=== PATIENT | female | born 1990 | race Caucasian/White ===

== ENCOUNTER → 2024-05-11 09:39 | Outpatient (REF) | payer BC, SELFPAY | LOC: WDC 09:39 | PROVIDERS: ATTENDING PHYSICIAN Advanced Practice Midwife; FAMILY PHYSICIAN Student in an Organized Health Care Education/Training Program | DX: N63.20 Unspecified lump in the left breast, unspecified quadrant (principal); N63.22 Unspecified lump in the left breast, upper inner quadrant | CPT/HCPCS: 76642; 77062; 77066 ==

== ENCOUNTER → 2025-03-26 11:24 | Outpatient (REF) | payer BC, SELFPAY | LOC: PNTC 11:24 | PROVIDERS: ATTENDING PHYSICIAN Obstetrics & Gynecology | DX: Z36.0 Encounter for antenatal screening for chromosomal anomalies (principal); Z36.82 Encounter for antenatal screening for nuchal translucency | CPT/HCPCS: 76801; 76813 ==

== ENCOUNTER → 2025-04-18 11:35 | Outpatient (REF) | payer BC, SELFPAY | LOC: PNTC 11:35 | PROVIDERS: ATTENDING PHYSICIAN Obstetrics & Gynecology | DX: O99.210 Obesity complicating pregnancy, unspecified trimester (principal) | CPT/HCPCS: 76805 ==

== ENCOUNTER → 2025-05-16 09:42 | Outpatient (REF) | payer BC, SELFPAY | LOC: PNTC 09:42 | PROVIDERS: ATTENDING PHYSICIAN Obstetrics & Gynecology | DX: O99.210 Obesity complicating pregnancy, unspecified trimester (principal) | CPT/HCPCS: 76811; 76817 ==

== ENCOUNTER → 2025-07-02 10:08 | Outpatient (REF) | payer BC, SELFPAY | LOC: PNTC 10:08 | PROVIDERS: ATTENDING PHYSICIAN Student in an Organized Health Care Education/Training Program | DX: O99.210 Obesity complicating pregnancy, unspecified trimester (principal) | CPT/HCPCS: 76816 ==

== ENCOUNTER → 2025-08-02 11:55 | Outpatient (REF) | payer BC, SELFPAY ==
--- NOTE | 2025-08-02 10:02 | PN.DIAED06 ---
Meal Plan - Gestational
- Breakfast
Gestational Diabetes Meal Plan Name: 1800 calories
Breakfast - Total Carbohydrate (grams): 30 (1 carb choice = 15 g)
Breakfast - Starch Carbohydrate: 1 (carbs = starch, fruit, juice, milk)
Breakfast - Fruit Carbohydrate: 0 (no fruit or juice before noon)
Breakfast - Milk Carbohydrate: 1
Breakfast - Nonstarchy Vegetables: Yes
Breakfast - Meat/Protein: 1 (1 serving protein = 1 oz/7g)
Breakfast - Fat: 2 (1 fat serving = 5g)
- Morning Snack
Morning Snack - Total Carbohydrate (grams): 30
Morning Snack - Starch Carbohydrate: 1
Morning Snack - Fruit Carbohydrate: 0 (no fruit or juice before noon)
Morning Snack - Milk Carbohydrate: 1
Morning Snack - Nonstarchy Vegetables: Yes
Morning Snack - Meat/Protein: 0.5
Morning Snack - Fat: 0
- Lunch
Lunch - Total Carbohydrate (grams): 45
Lunch - Starch Carbohydrate: 2
Lunch - Fruit Carbohydrate: 1
Lunch - Milk Carbohydrate: 0
Lunch - Nonstarchy Vegetables: Yes
Lunch - Meat/Protein: 2
Lunch - Fat: 1
- Afternoon Snack
Afternoon Snack - Total Carbohydrate (grams): 30
Afternoon Snack - Starch Carbohydrate: 1
Afternoon Snack - Fruit Carbohydrate: 1
Afternoon Snack - Milk Carbohydrate: 0
Afternoon Snack - Nonstarchy Vegetables: Yes
Afternoon Snack - Meat/Protein: 1
Afternoon Snack - Fat: 0
- Dinner
Dinner - Total Carbohydrate (grams): 45
Dinner - Starch Carbohydrate: 2
Dinner - Fruit Carbohydrate: 0
Dinner - Milk Carbohydrate: 1
Dinner - Nonstarchy Vegetables: Yes
Dinner - Meat/Protein: 2
Dinner - Fat: 2
- Evening Snack
Evening Snack - Total Carbohydrate (grams): 30
Evening Snack - Starch Carbohydrate: 1
Evening Snack - Fruit Carbohydrate: 0
Evening Snack - Milk Carbohydrate: 1
Evening Snack - Nonstarchy Vegetables: Yes
Evening Snack - Meat/Protein: 1
Evening Snack - Fat: 1
--- NOTE | 2025-08-02 15:44 | PN.DE ---
Diabetes Education
- -
08/02/2025 GESTATIONAL DIABETES CONSULTATION
Met with patient today for medical nutrition therapy. She is currently at 31 weeks of gestation, with an KISHOR of 10/03/2025.
Explained glucose metabolism in body and what occurs during to cause increase blood sugar. Discussed importance of keeping BS well controlled to avoid complications to the baby during and after (macrosomia, hypoglycemia). Discussed
macronutrients, provided with 1800 judy GDM meal plan.
Discussed physical activity and how it can lower glucose. She walks 1-1.5 miles in the AM with her , discussed the benefits of exercising after dinner to help keep morning glucose controlled. She verbalized acknowledgement.
She states she uses [employer] to track micronutrients. She also asked about Skinny Pasta with Konjac powder. I stated this may not be recommended as there are conflicting reports on using if and to discuss with her provider. We
reviewed the proper portion size of whole grain pasta at 15 grams per serving, and this is still an acceptable carbohydrate source.
She presented to the appointment with a new Glucose monitor- [employer] with supplies. Reviewed proper testing technique, testing sites and testing pattern. She is aware to test FBS and 2 hr pp each meal. Expected results for FBS <95 mg/dl and 2
hr pp <120 mg/dl. Noted for blood sugar of 111mg/dl 90 minutes after breakfast this morning. Log sheet provided for her to record results, she will send a 4-day meal log with all her FBG and 2hr Post prandial glucose numbers to this office for
review. In addition, she will [facility] all [facility] glucose [facility] Tuesday. She was encouraged to reach out should she require insulin.
--- NOTE | 2025-08-06 11:17 | PN.DIAED08 ---
Addendum entered by Katie Sanders RN 08/06/25 11:32:
Addendum: Olinda also stated she is eating 1400 calories a day. I emphasized she has a 400 calorie per day meal plan and to eat more as indicated previously for proper nutrients and weight gain.
Original Note:
Patient Call Notes
- Patient Call Notes
Evaluated By: Registered Nurse
Patient Note Types: Educator initiated call
Notes:
08/06/2025 GESTATIONAL DIABETES FOLLOW UP
Olinda sent me her meal plan and glucose readings. Her fasting blood sugar has been 93 - 98 mg/dL and she states that sometimes she eats a snack and sometimes not. Her 2 hour post prandial glucose readings are 91-119 with a reading at 126 and 128.
I reminded her to not skip snacks as she did not document eating any snacks between meals and after dinner. She is also not eating enough carbohydrate foods, emphasized she should stay with the carbohydrate amounts in her meal plan of 30-45 grams
at snacks and meals. Also reminded her to not skip the evening snack to prevent rebound hypoglycemia, walk and drink water after dinner. Asked her to follow up by Tuesday.
== END ==
LOC: DES 11:55
PROVIDERS: ATTENDING PHYSICIAN Obstetrics & Gynecology
DX: O24.419 Gestational diabetes mellitus in pregnancy, unspecified control (principal)
CPT/HCPCS: 99078

== ENCOUNTER → 2025-08-12 09:08 | Outpatient (REF) | payer BC, SELFPAY | LOC: PNTC 09:08 | PROVIDERS: ATTENDING PHYSICIAN Student in an Organized Health Care Education/Training Program | DX: O99.210 Obesity complicating pregnancy, unspecified trimester (principal) | CPT/HCPCS: 76816 ==

== ENCOUNTER → 2025-08-27 16:04 | Outpatient (REF) | payer BC, SELFPAY | LOC: PNTC 16:04 | PROVIDERS: ATTENDING PHYSICIAN Student in an Organized Health Care Education/Training Program | DX: O99.213 Obesity complicating pregnancy, third trimester (principal); O24.410 Gestational diabetes mellitus in pregnancy, diet controlled | CPT/HCPCS: 59025; 76815 ==

== ENCOUNTER → 2025-09-03 16:11 | Outpatient (REF) | payer BC, SELFPAY ==
--- NOTE | 2025-09-05 15:04 | PN.DE ---
Diabetes Education
- -
09/05/2025 GESTATIONAL DIABETES - INSULIN ADMINISTRATION EDUCATION
Olinda is prescribed 6 units NPH, her BS has been ranging 90-99 in AM QD.
I educated and demonstrated on NPH insulin injection technique, importance of rotating sites, timing QD HS, and storage. She provided successful repeat demonstration, will contact the office with additional questions.
== END ==
LOC: PNTC 16:11
PROVIDERS: ATTENDING PHYSICIAN Student in an Organized Health Care Education/Training Program
DX: O99.210 Obesity complicating pregnancy, unspecified trimester (principal); O24.410 Gestational diabetes mellitus in pregnancy, diet controlled
CPT/HCPCS: 59025; 76815

== ENCOUNTER → 2025-09-05 14:40 | Outpatient (REF) | payer BC, SELFPAY | LOC: DES 14:40 | PROVIDERS: ATTENDING PHYSICIAN Obstetrics & Gynecology | DX: O24.419 Gestational diabetes mellitus in pregnancy, unspecified control (principal) | CPT/HCPCS: 99078 ==

== ENCOUNTER → 2025-09-10 16:06 | Outpatient (REF) | payer BC, SELFPAY | LOC: PNTC 16:06 | PROVIDERS: ATTENDING PHYSICIAN Student in an Organized Health Care Education/Training Program | DX: O99.210 Obesity complicating pregnancy, unspecified trimester (principal); O24.410 Gestational diabetes mellitus in pregnancy, diet controlled | CPT/HCPCS: 59025; 76816; 76818 ==

== ENCOUNTER → 2025-09-17 15:39 | Outpatient (REF) | payer BC, SELFPAY | LOC: PNTC 15:39 | PROVIDERS: ATTENDING PHYSICIAN Student in an Organized Health Care Education/Training Program | DX: O99.213 Obesity complicating pregnancy, third trimester (principal); O24.410 Gestational diabetes mellitus in pregnancy, diet controlled | CPT/HCPCS: 59025; 76815 ==

== ENCOUNTER → 2025-09-24 16:05 | Outpatient (REF) | payer BC, SELFPAY | LOC: PNTC 16:05 | PROVIDERS: ATTENDING PHYSICIAN Obstetrics & Gynecology | DX: O99.213 Obesity complicating pregnancy, third trimester (principal); O24.410 Gestational diabetes mellitus in pregnancy, diet controlled | CPT/HCPCS: 59025; 76816 ==

== ENCOUNTER 2025-09-27 08:21 | Inpatient (IN) | payer BC, SELFPAY ==
--- NOTE | 2025-09-27 08:25 | HPS.HSE ---
Family Physician
-
Family Physician: ZAIDA Queen
Chief Complaint
-
History of Present Illness
HPI: Patient is a 34yo @39.1 who presents for elective scheduled primary section. On US 2 days ago, baby was measuring 3800g with the abdominal circumference measuring at 41wks with a decreased head to body ratio. Patient was
counseled on the risk of shoulder dystocia and proceeding with induction of labor vs section and she desires .
complications
- GDMA2
- Suspected macrosomia
- Rubella non-immune
- BMI 35
PMHx: obesity, ADD, anxiety
Meds: NPH 12u qHS, PNV, bASA
Surghx: D&E, tonsils/adenoids
All: azithromycin- hives
Socialhx: denies tobacco, etoh or illicit drug use
Famhx: non-contributory
OBHx: EABx1
labs: Blood type O+, AB neg, RPR non-reactive, UCx neg, HBsAg neg, HIV neg, GCCT neg, Rubella immune, Hep C neg, 1hr 169 (3hr abormal), GBS neg
Medical History
Past Medical History
Past Medical History: Reports Other
Past Surgical History: Reports Tonsilectomy
Social History
Tobacco: Non-smoker
Alcohol: None
Drug: None
Family History
Family History: Not pertinent
Allergies / Home Medications
Allergies reflects when Allergies were last updated in [facility].
Home Medications with original date entered in [facility]
Allergy/Medication List:
Meds: 12u NPH qHS, bASA, PNV
All: Azithromycin- hives
Review of Systems
-
A 12 point ROS was completed and negative except as noted: Yes
Physical Exam
Physical Exam
General: Well Developed and Well Nourished
HEENT: NormoCephalic
Respiratory: Non Labored Respirations
Cardiac: Regular Rhythm
Skin: Warm and Dry
Neuro: Awake and Alert
Psych: Calm
Impression/Plan
-
IMPRESSION:
Patient is a 34yo @39.1 with suspected macrosomia who presents for elective primary section
PLAN:
- Baby measuring >90th percentile with a decreased head to body ratio. Patient was counseled proceeding with induction of labor vs primary section including risks of each. Risk of should dystocia reviewed. Patient is very nervous about
proceeding with induction of labor and it ending in a section or shoulder dystocia. She prefers to proceed with primary section. She is aware this is an elective procedure and the ultrasound could be off by 1lb either way. Risks,
benefits and alternatives of a reviewed including bleeding, infection, damage to surrounding structures and need for future operations. She was consented for a blood transfusion in case of emergency
- 2g of Ancef prior to
[2025-09-27] MEDS: LR 1000 IV ×2 (09:00→10:39)
[2025-09-27 09:12] LABS: Glucose - Point of Care 99 mg/dl (70-99)
[2025-09-27 09:30] VITALS: BP 124/85; BMI 41.6
[2025-09-27 09:33] LABS: Hematocrit 37.2 % (37.0-47.0); Hemoglobin 12.2 g/dL (12.0-16.0); Mean Corp Hgb Conc. 32.8 g/dL (33.0-37.0); Mean Corpuscular Volume 90.3 fL (81.0-99.0); Platelet Count 201 10^3/uL (130-400); Red Cell Dist. Width 13.9 % (11.5-14.5)
[2025-09-27] MEDS: TYLENOL 975 MG PO (14:03)
[2025-09-27] MEDS: ANCEF 10 IV (15:14)
[2025-09-27] MEDS: BICITRA 30 ML PO (15:14)
[2025-09-27] MEDS: BENADRYL 25 MG PO (18:08)
--- NOTE | 2025-09-27 19:23 | OR.RPT ---
Operative Report
Operative Report
Procedure date: 09/27/2025
Preop diagnosis: IUP @39.1, GDMA2, suspected macrosomia
Postop diagnosis: same
Procedure: elective primary low transverse section
Surgeon: Eleanor
Anesthesia: Spinal, Chamber
QBL: 320 mL
Findings: viable male infant born at 1547, Apgars 8/8, meconium stained amniotic fluid, normal appearing uterus, bilateral fallopian tubes and ovaries, uterine atony responded to methergine and hemabate
Complications: none
Indication: Patient is a 34yo @39.1 who presents for scheduled elective primary low transverse section. She had an ultrasound on 09/24 that showed baby measuring >90th percentile with a decreased head to body ratio. Patient was
counseled proceeding with induction of labor vs primary section including risks of each. Risk of should dystocia reviewed. Patient was very nervous about proceeding with induction of labor and it ending in a section or shoulder
dystocia. She preferred to proceed with primary section. She was aware it is an elective procedure and the ultrasound could be off by 1lb either way. Risks, benefits and alternatives of a reviewed including bleeding, infection,
damage to surrounding structures and need for future operations. Consents were signed.
Procedure: Patient was taken to the operating room where spinal anesthesia was administered and found to be adequate. 2g of Ancef was given for antibiotic prophylaxis. The abdomen was prepped with ChloraPrep. The patient was draped in the normal
sterile fashion. She was placed in the dorsal supine position with a left lateral tilt. A Pfannenstiel incision was made with a 10 blade and carried down to the fascia with a scalpel. Hemostasis achieved with Bovie. The fascia was incised and
dissected laterally with Montero scissors. The superior aspect of the fascia was grasped with Belgica clamps. The underlying rectus fascia was sharply dissected with Montero scissors. In a similar fashion the inferior aspect of the fascia was elevated with
Belgica clamps and the rectus muscle was dissected off with Montero scissors. The rectus muscles were down the midline to the level of the pubic symphysis with manual dissection. The peritoneum was bluntly entered and extended using manual
traction.
Mcclendon retractor and bladder blade were placed revealing good visualization of the bladder. The vesicouterine peritoneum was identified. A thin lower uterine segment was noted. The lower uterine segment was incised with a scalpel. Meconium
stained amniotic fluid noted at entry in the amniotic cavity. The uterine incision was extended bluntly with lateral and upward traction.
The fetus was in cephalic presentation. The head was elevated out of the pelvis with special attention paid to avoid using the uterine incision as a fulcrum. Gentle fundal pressure was applied once the head was brought to the incision. The head
delivered through the hysterotomy. The rest of the delivered without difficulty. Delayed cord clamping was performed. The was handed off to the corrective and manual arts therapist. IV oxytocin was started to facilitate uterine contractions. The placenta was
expressed with manual traction and fundal massage. The uterus was exteriorized. Allis clamps were placed at the apices of the hysterotomy. The inside of the uterus was wiped with a lap sponge to assure complete removal of placental membranes. Fundal
massage was performed and uterus was atonic. Methergine given and uterus still atonic. Hemabate given with improvement in tone. The uterine incision was closed with 0 Vicryl in a running locked fashion. A horizontal imbricating stitch was done on
the hysterotomy with 0 Vicryl. The hysterotomy was inspected and noted to be hemostatic. The uterus was placed back in the abdomen. Blood clots and fluid were wiped out of the abdomen and pelvis with moist laparotomy sponges. The hysterotomy was
examined and was hemostatic. Surgicel was placed over the hysterotomy.
The rectus muscles were inspected and any small oozing vessels were cauterized with the Bovie to achieve hemostasis. The fascial layer was closed in a running continuous fashion using 0 Vicryl. The subcutaneous tissue was copiously irrigated and any
small bleeding vessels were cauterized with Bovie cautery. The subcutaneous tissue was reapproximated in a running continuous fashion with 2-0 Plain. The skin was closed with 4-0 Vicryl in a subcuticular fashion and covered with skin glue and a
pressure dressing. The patient tolerated the procedure well. All sponge and instrument counts were correct times two. The patient was taken to the recovery room in stable condition. Guo catheter was draining clear urine at the end of the procedure.
[2025-09-27] MEDS: COLACE 100 MG PO (19:59)
[2025-09-27] MEDS: ZOFRAN 4 MG IV (21:12)
[2025-09-27] MEDS: TORADOL 15 MG IV (21:46)
[2025-09-28] MEDS: TORADOL 15 MG IV ×3 (03:48→16:05)
[2025-09-28 04:49] LABS: Hematocrit 37.5 % (37.0-47.0); Hemoglobin 12.1 g/dL (12.0-16.0); Mean Corp Hgb Conc. 32.3 g/dL (33.0-37.0); Mean Corpuscular Volume 91.0 fL (81.0-99.0); Platelet Count 226 10^3/uL (130-400); Red Cell Dist. Width 13.7 % (11.5-14.5)
--- NOTE | 2025-09-28 09:18 | W.PN.ANS.POP ---
Anesthesia Post Operative
- Anesthesia Post Op Note
Vital Signs Stable-See Nursing Note: Yes
Airway Patent: Yes
Adequate Pain Control: Yes
Change in Mental Status: No
Current Postoperative Nausea & Vomiting: No
Anesthesia Complications: No
General Anesthetic Recall: No
Unplanned Admission: No
Post Op Hydration Adequate: Yes
[2025-09-28] MEDS: COLACE 100 MG PO ×2 (10:02→21:58)
[2025-09-28] MEDS: PRENATAL PLUS 1 TABLET PO (10:02)
[2025-09-28] MEDS: ROXICODONE 5 MG PO ×2 (12:38→22:06)
[2025-09-28] MEDS: MYLICON 80 MG PO (18:17)
[2025-09-28] MEDS: MOTRIN 600 MG PO (21:58)
[2025-09-28] MEDS: TYLENOL 650 MG PO (21:59)
[2025-09-29] MEDS: COLACE 100 MG PO ×2 (07:29→20:20)
[2025-09-29] MEDS: PRENATAL PLUS 1 TABLET PO (07:29)
[2025-09-29] MEDS: ROXICODONE 5 MG PO (07:29)
[2025-09-29] MEDS: MOTRIN 600 MG PO ×3 (07:30→20:20)
[2025-09-29] MEDS: TYLENOL 650 MG PO ×2 (14:06→20:20)
[2025-09-29] MEDS: MYLICON 80 MG PO (20:29)
[2025-09-30] MEDS: MOTRIN 600 MG PO (05:56)
[2025-09-30] MEDS: TYLENOL 650 MG PO (05:56)
[2025-09-30] MEDS: PRENATAL PLUS 1 TABLET PO (08:22)
[2025-09-30] MEDS: COLACE 100 MG PO (08:22)
[2025-09-30] MEDS: M-M-R II 0.5 ML SC (12:27)
[2025-10-01 13:59] LABS: Syphilis/T. pallidum Ab Reflex Negative (Negative)
== END 2025-09-30 16:03 | disposition home or self-care (01) | DRG 788 ==
LOC: LDRP 08:21
PROVIDERS: ADMITTING PHYSICIAN Student in an Organized Health Care Education/Training Program; FAMILY PHYSICIAN Nurse Practitioner Family
PROC: 10D00Z1 Extraction of Products of Conception, Low, Open Approach (ICD-10-PCS; 2025-09-27)
DX: O77.0 Labor and delivery complicated by meconium in amniotic fluid (principal); Z3A.39 39 weeks gestation of pregnancy; Z37.0 Single live birth; O24.429 Gestational diabetes mellitus in childbirth, unspecified control
CPT/HCPCS: 36415; 82962; 85027; 86780; 86850; 86900; 86901; 88307; 90707